=== PATIENT | male | born 1960 | race Caucasian/White ===

== ENCOUNTER 2020-02-03 08:09 | Inpatient (IN) | payer OTHER ==
[2020-02-03] MEDS ORDERED: Sodium Chloride 0.9% 10 ML Syringe FLUSH PRN (08:32)
[2020-02-03] MEDS ORDERED: Ondansetron 4 MG/2 ML SDV IVPUSH PRN (08:37)
[2020-02-03] MEDS ORDERED: Sodium Chloride 0.9% 1,000 ML IV SCH (08:45)
[2020-02-03] MEDS ORDERED: D5 1/2 NS w/ 20 mEq/L KCl 1,000 ML ONE (09:42)
[2020-02-03] MEDS ORDERED: D5 1/2 NS w/ 10 mEq/L KCl 1,000 ML IV SCH (09:45)
[2020-02-03] MEDS: Magnesium Sulfate/D5W 1 GM/100 ML BAG IV SCH ×4 (10:01→16:01)
[2020-02-03] MEDS: D5 1/2 NS w/ 20 mEq/L KCl 1,000 ML IV SCH ×2 (10:01→16:31)
[2020-02-03] MEDS: Magnesium Sulfate/D5W 2 GM/200 ML BAG ONE ×2 (10:03→14:45)
[2020-02-03] MEDS ORDERED: Magnesium Sulfate/D5W 1 GM/100 ML Premix Bag IV SCH ×3 (10:10→18:45)
[2020-02-03] MEDS ORDERED: Magnesium Sulfate/D5W 1 GM/100 ML Premix Bag IV ONE (14:45)
[2020-02-03] MEDS ORDERED: Potassium Chloride 20 MEQ Tab.ER PO ONE (18:35)
[2020-02-03] MEDS ORDERED: MAGNESIUM SULFATE IV ONE (19:00)
[2020-02-03] MEDS ORDERED: WATER IV ONE (19:00)
[2020-02-04] MEDS: D5 1/2 NS w/ 20 mEq/L KCl 1,000 ML IV SCH ×4 (01:56→14:48)
[2020-02-04] MEDS: Aspirin 81 MG Tab.EC PO SCH (08:04)
[2020-02-04] MEDS ORDERED: MAGNESIUM SULFATE ONE (16:56)
[2020-02-04] MEDS ORDERED: DEXTROSE ONE (16:56)
[2020-02-04] MEDS ORDERED: Magnesium Sulfate/D5W 1 GM/100 ML Premix Bag IV SCH (17:00)
[2020-02-04] MEDS: Magnesium Sulfate/D5W 1 GM/100 ML BAG IV SCH ×4 (17:22→21:46)
--- NOTE | 2020-02-04 17:33 | CR ---
DATE OF SERVICE: 02/04/20 CLINICAL DATA: Neurological deficit/impairment CERVICAL SPINE: No priors. There is diffuse osteopenia. There is mild reversal of the normal cervical lordosis on the lateral view. This is most likely positional or due to muscle spasm. The cervical bodies are of average height. No acute fracture or dislocation. There is mild degenerative disc disease at a couple levels. The disc spaces appear relatively intact. No other significant findings. If the patient's symptoms persist, a MRI scan should be considered. [id number] MTDD
[2020-02-04] MEDS ORDERED: Potassium Chloride 20 MEQ Tab.ER PO ONE (20:45)
[2020-02-05] MEDS ORDERED: Potassium Chloride 20 MEQ Tab.ER PO ONE ×2 (00:31→08:14)
[2020-02-05] MEDS: Aspirin 81 MG Tab.EC PO SCH (07:49)
[2020-02-05] MEDS ORDERED: Lisinopril 20 MG Tab PO SCH (08:15)
[2020-02-05] MEDS: Magnesium Sulfate/D5W 2 GM/200 ML BAG ONE ×2 (08:41→09:53)
[2020-02-05] MEDS ORDERED: Triamcinolone Acetonide 40 MG/ML 1 ML MDV INJECT ONE (15:43)
[2020-02-05] MEDS ORDERED: Sildenafil 20 MG Tab PO PRN (16:02)
[2020-02-05] MEDS ORDERED: MSM PO SCH (20:00)
[2020-02-05] MEDS ORDERED: metFORMIN 1,000 MG Tab PO SCH (20:00)
[2020-02-05] MEDS ORDERED: [UNRECOGNIZED DRUG - OTHER] PO SCH (20:00)
[2020-02-05] MEDS ORDERED: GLUC SU PO SCH (20:00)
[2020-02-05] MEDS ORDERED: atorvaSTATin 40 MG Tab PO SCH (20:00)
[2020-02-05] MEDS ORDERED: MAGNESIUM PO SCH (20:00)
[2020-02-05] MEDS ORDERED: amLODIPine 5 MG Tab PO SCH (20:00)
--- NOTE | 2020-02-05 20:37 | PCM.HP.2 ---
H&P History of Present Illness - General Date of Service: 02/03/20 Admit Problem/Dx: Admission Diagnosis/Problem Admission Diagnosis/Problem Hypomagnesemia Source of Information: Patient History Limitations: Reports: No Limitations - History of Present Illness Initial Comments - Free Text/Narative: Jerrod presents with significant symptoms of dehydration as well as recurrent nausea and vomiting. He started to become ill at least 2 months ago. He mainly focuses on his issues with nausea. He has had multiple emesis. He notes that this has been gradually worsening for at least 5+ weeks. Over the last 2 days, it has become severe enough that he has been unable to eat any food. He has had really limited oral intake. He has never had any significant issues with hypokalemia or hypomagnesemia per his knowledge. He is very weak upon arrival. He has no focal deficits. He feels dizzy with flexion of his neck lifting his head up a pillow. This is noted to elicit some mild nystagmus at the endpoints of his gaze bilaterally. He otherwise has conjugate movements of his eyes and definite denial of any visual symptoms. He does not appear to be particularly vertiginous. He has not been 1 to have migraines. He has had no hematemesis, melena, or hematochezia. He has had no diarrhea whatsoever. He has had no fevers. He denies any palpitations or history of ischemic or other cardiovascular issues throughout his life. His diabetes and hypertension is described as reasonably controlled. He continues to smoke, but has never really been want to drink much. He has had no issues in terms of lower extremity weakness or gait ataxia. Generalized Pain Score (Numeric/FACES): 2 - Related Data Allergies/Adverse Reactions: Allergies Allergy/AdvReac Type Severity Reaction Status Date / Time No Known Allergies Allergy Verified 02/03/20 09:22 Home Medications: Home Meds Aspirin [Ecotrin EC] 81 mg PO DAILY 02/03/20 [History] Gluc Panchal/Msm/Magnesium/Vit C [Glucosamine Complex-MSM] 1 cap PO BID 02/03/20 [ History] Krill Oil/[place]-3/Dha/Epa [Cvs [place]-3 Krill Oil 300 Sfgl] 1 cap PO DAILY [History] Multivitamin/Iron/Folic Acid [Centrum Adults Tablet] 1 tab PO DAILY 04/19/20 [ History] Omeprazole 20 mg PO DAILY 02/03/20 [History] Pioglitazone HCl [Actos] 45 mg PO DAILY 02/03/20 [History] Sildenafil [Revatio] 20 mg PO DAILY PRN 02/03/20 [History] amLODIPine [Norvasc] 5 mg PO BEDTIME 02/03/20 [History] atorvaSTATin [Lipitor] 40 mg PO BEDTIME 02/03/20 [History] lisinopriL [Lisinopril] 40 mg PO BEDTIME 02/03/20 [History] metFORMIN [Glucophage] 1,000 mg PO BID 02/03/20 [History] Past Medical History Cardiovascular History: Reports: High Cholesterol Respiratory History: Reports: None, Other (See Below) Other Respiratory History: smoker Endocrine/Metabolic History: Reports: Diabetes, Type II - Infectious Disease History Infectious Disease History: Reports: Mumps Other Infectious Disease History: Not sure but thinks so for Measles, mumps chicken pox - Past Surgical History Cardiovascular Surgical History: Reports: None Endocrine Surgical History: Reports: None Musculoskeletal Surgical History: Reports: Hip Replacement Social & Family History - Family History Family Medical History: Noncontributory - Tobacco Use Smoking Status *Q: Current Every Day Smoker Years of Tobacco use: 40 Packs/Tins Daily: 1 - Caffeine Use Caffeine Use: Reports: Soda - Recreational Drug Use Recreational Drug Use: No H&P Review of Systems - Review of Systems: Review Of Systems: Comprehensive ROS is negative, except as noted in HPI. Exam - Exam Exam: See Below - Vital Signs Vital Signs: Last Vital Signs Temp 98.7 F 02/05/20 12:00 Pulse 94 02/05/20 12:00 Resp 16 02/05/20 12:00 BP 120/71 02/05/20 12:00 Pulse Ox 96 02/05/20 12:00 Weight: 282 lb - Exam General: Alert, Oriented HEENT: PERRLA, Conjunctiva Clear, EOMI, Pupils Equal Neck: Supple Lungs: Clear to Auscultation, Normal Respiratory Effort Cardiovascular: Regular Rhythm GI/Abdominal Exam: Normal Bowel Sounds, Soft, Non-Tender, No Distention Back Exam: Normal Inspection, Muscle Spasm. No: CVA Tenderness (R), CVA Tenderness (L) Extremities: Normal Inspection, Non-Tender, No Pedal Edema, Normal Capillary Refill Skin: Warm, Dry, Intact Neurological: Cranial Nerves Intact, Strength Equal Bilateral, Normal Speech, Sensation Intact. No: Focal Deficit Neuro Extensive - Mental Status: Alert, Oriented x3, Normal Mood/Affect, Normal Cognition, Memory Intact Neuro Extensive - Motor, Sensory, Reflexes: CN II-XII Intact. No: Motor/ Sensory Deficits Psychiatric: Alert, Normal Affect, Normal Mood - Patient Data Lab Results Last 24 hrs: Laboratory Results - last 24 hr 02/05/20 Range/Units 07:20 Sodium 138 (136-145) mmol/L Potassium 3.9 (3.5-5.1) mmol/L Chloride 103 (98-107) mmol/L Carbon Dioxide 29.2 (21.0-32.0) mmol/L Anion Gap 9.7 (5.0-15.0) mmol/L BUN 6 L D (8-26) mg/dL Creatinine 0.80 (0.70-1.30) mg/dL Est Cr Clr Drug Dosing 122.41 mL/min Estimated GFR (MDRD) > 60 (>60) MLS/MIN BUN/Creatinine Ratio 7.5 (6-25) Glucose 122 H (74-100) mg/dL Calcium 8.0 L (8.5-10.1) mg/dL Magnesium 1.7 L (1.8-2.4) mg/dL Result Diagrams: 02/04/20 07:15 02/05/20 07:20 Sepsis Event Note - Evaluation Sepsis Screening Result: No Definite Risk - Focused Exam Vital Signs: Vital Signs Temp Pulse Resp BP BP Pulse Ox 02/05/20 12:00 98.7 F 94 16 120/71 96 02/05/20 08:40 138/98 H Date Exam was Performed: 02/06/20 Time Exam was Performed: 00:41 Problem List Initiated/Reviewed/Updated: Yes Orders Last 24hrs: Active Orders 24 hr Category Date Time Status Ready for Discharge [RC] PER UNIT ROUTINE Care 02/05/20 15:48 Active Assessment/Plan Comment:: Severe hypomagnesemia and risk for cardiac electrical storm +/- torsades- explained risk vs benefit of transfer vs continued management at this facility; and Jerrod expresses a very strong preference to stay in our facility. Plan continued electrolyte and fluid replenishment. Dizziness- difficult to r/o element of orthostasis; not clearly vertiginous; but nystagmus begs the question of BPPV. Follow to resolution and evaluate as regains more physical stamina
--- NOTE | 2020-02-05 21:40 | PCM.PN ---
- General Info Date of Service: 02/04/20 Subjective Update: Jerrod feels markedly better. Urine output improving. Certainly his severity of hypomagnesemia is improving. Total body deficit is striking and difficult to determine. Plan to continue to run as fluid repletion continue. He actually is not up to ambulating much. Having some dizziness today, but less so. He relates his story of relatively occult neck fracture. Was well until about a month ago, and felt a slight snapping sensation open rolling out of bed. Has followed with PT and interested in re-Xray. Tolerating well orally. No new issues. - Patient Data Vitals - Most Recent: Last Vital Signs Temp 98.7 F 02/05/20 12:00 Pulse 94 02/05/20 12:00 Resp 16 02/05/20 12:00 BP 120/71 02/05/20 12:00 Pulse Ox 96 02/05/20 12:00 Weight - Most Recent: 282 lb I&O - Last 24 Hours: Intake & Output 02/05/20 02/05/20 02/05/20 06:59 14:59 22:59 Intake Total 1250 Balance 1250 Lab Results Last 24 Hours: Laboratory Results - last 24 hr 02/05/20 Range/Units 07:20 Sodium 138 (136-145) mmol/L Potassium 3.9 (3.5-5.1) mmol/L Chloride 103 (98-107) mmol/L Carbon Dioxide 29.2 (21.0-32.0) mmol/L Anion Gap 9.7 (5.0-15.0) mmol/L BUN 6 L D (8-26) mg/dL Creatinine 0.80 (0.70-1.30) mg/dL Est Cr Clr Drug Dosing 122.41 mL/min Estimated GFR (MDRD) > 60 (>60) MLS/MIN BUN/Creatinine Ratio 7.5 (6-25) Glucose 122 H (74-100) mg/dL Calcium 8.0 L (8.5-10.1) mg/dL Magnesium 1.7 L (1.8-2.4) mg/dL Med Orders - Current: Current Medications Discontinued Medications Amlodipine Besylate (Norvasc) 5 mg PO BEDTIME [facility] Aspirin (Halfprin) 81 mg PO DAILY [facility] Last Admin: 02/05/20 07:49 Dose: 81 mg Atorvastatin Calcium (Lipitor) 40 mg PO BEDTIME [facility] Sodium Chloride (Normal Saline) 1,000 mls @ 999 mls/hr IV ASDIRECTED [facility] Last Admin: 02/03/20 08:39 Dose: 999 mls/hr Potassium Chloride/Dextrose/Sod Cl (D5 1/2 Ns W/ 20 Meq/L Kcl) Confirm Administered Dose 1,000 mls @ as directed .ROUTE .[facility] Stop: 02/03/20 09:43 Last Admin: 02/03/20 10:02 Dose: Not Given Potassium Chloride/Dextrose/Sod Cl (D5 1/2 Ns W/ 10 Meq/L Kcl) 1,000 mls @ 200 mls/hr IV ASDIRECTED [facility] Magnesium Sulfate/Dextrose (Magnesium Sulfate In D5w 100 Premix) Confirm Administered Dose 2 gm in 200 mls @ as directed .ROUTE .[facility] Stop: 02/03/20 09:45 Last Admin: 02/03/20 14:45 Dose: Not Given Potassium Chloride/Dextrose/Sod Cl (D5 1/2 Ns W/ 20 Meq/L Kcl) 1,000 mls @ 200 mls/hr IV ASDIRECTED [facility] Last Admin: 02/04/20 14:48 Dose: 200 mls/hr Magnesium Sulfate/Dextrose (Magnesium Sulfate In D5w 100 Premix) 1 gm in 100 mls @ 100 mls/hr IV Q1H [facility] Stop: 02/03/20 12:29 Last Admin: 02/03/20 14:43 Dose: 200 mls/hr Magnesium Sulfate/Dextrose (Magnesium Sulfate In D5w 100 Premix) 1 gm in 100 mls @ 100 mls/hr IV Q1H [facility] Stop: 02/03/20 16:44 Last Admin: 02/03/20 16:01 Dose: 200 mls/hr Magnesium Sulfate 4 gm/ Premix 50 mls @ 12.5 mls/hr IV ONETIME ONE Stop: 02/03/20 22:59 Last Admin: 02/03/20 19:13 Dose: 12.5 mls/hr Magnesium Sulfate/Dextrose (Magnesium Sulfate In D5w 100 Premix) Confirm Administered Dose 4 gm in 400 mls @ as directed .ROUTE .[facility] Stop: 02/04/20 16:57 Last Admin: 02/04/20 17:21 Dose: 100 mls/hr Magnesium Sulfate/Dextrose (Magnesium Sulfate In D5w 100 Premix) 1 gm in 100 mls @ 100 mls/hr IV Q1H [facility] Stop: 02/04/20 21:29 Last Admin: 02/04/20 21:46 Dose: 100 mls/hr Magnesium Sulfate/Dextrose (Magnesium Sulfate In D5w 100 Premix) Confirm Administered Dose 2 gm in 200 mls @ as directed .ROUTE .[facility] ONE Stop: 02/05/20 08:38 Last Admin: 02/05/20 09:53 Dose: Not Given Magnesium Sulfate 4 gm/ Sodium (Chloride) 258 mls @ 65 mls/hr IV ASDIRECTED [facility] Stop: 02/05/20 23:59 Last Admin: 02/05/20 09:35 Dose: 65 mls/hr Lisinopril (Prinivil) 20 mg PO DAILY [facility] Last Admin: 02/05/20 08:40 Dose: 20 mg Lisinopril (Prinivil) 40 mg PO BEDTIME [facility] Magnesium Sulfate/Dextrose (Magnesium Sulfate In D5w 100 Premix) 1 gm IV Q1H [facility] Stop: 02/03/20 11:11 Magnesium Sulfate/Dextrose (Magnesium Sulfate In D5w 100 Premix) 1 gm IV ASDIRECTED [facility] Magnesium Sulfate/Dextrose (Magnesium Sulfate In D5w 100 Premix) 1 gm IV ONETIME ONE Stop: 02/03/20 14:46 Magnesium Sulfate/Dextrose (Magnesium Sulfate In D5w 100 Premix) 1 gm IV ASDIRECTED [facility] Stop: 02/06/20 18:46 Metformin HCl (Glucophage) 1,000 mg PO BID [facility] Non-Formulary Medication (Gluc Panchal/Msm/Magnesium/Vit C [Glucosamine Complex-Msm] ) 1 cap PO BID [facility] Non-Formulary Medication (Krill Oil/[place]-3/Dha/Epa [Cvs [place]-3 Krill Oil 300 Sfgl]) 1 cap PO DAILY [facility] Non-Formulary Medication (Multivitamin/Iron/Folic Acid [Centrum Adults Tablet]) 1 tab PO DAILY [facility] Ondansetron HCl (Zofran) 4 mg IVPUSH Q4H PRN PRN Reason: Nausea/Vomiting Last Admin: 02/03/20 08:39 Dose: 4 mg Pioglitazone HCl (Actos) 45 mg PO DAILY [facility] Potassium Chloride (Klor-Con M20) 40 meq PO ONETIME ONE Stop: 02/03/20 18:36 Last Admin: 02/03/20 19:12 Dose: 40 meq Potassium Chloride (Klor-Con M20) 40 meq PO ONETIME ONE Stop: 02/04/20 20:46 Last Admin: 02/04/20 21:08 Dose: 40 meq Potassium Chloride (Klor-Con M20) 40 meq PO ONETIME ONE Stop: 02/05/20 00:32 Last Admin: 02/05/20 00:54 Dose: 40 meq Potassium Chloride (Klor-Con M20) 40 meq PO ONETIME ONE Stop: 02/05/20 08:15 Last Admin: 02/05/20 08:40 Dose: 40 meq Sildenafil Citrate (Revatio) 20 mg PO DAILY PRN PRN Reason: Other Sodium Chloride (Saline Flush) 10 ml FLUSH ASDIRECTED PRN PRN Reason: IV Use Triamcinolone Acetonide (Kenalog-40) 40 mg INJECT ONETIME ONE Stop: 02/05/20 15:44 Sepsis Event Note - Evaluation Sepsis Screening Result: No Definite Risk - Focused Exam Vital Signs: Vital Signs Temp Pulse Resp BP Pulse Ox 02/05/20 12:00 98.7 F 94 16 120/71 96 Date Exam was Performed: 02/05/20 Time Exam was Performed: 21:16 - Problem List Review Problem List Initiated/Reviewed/Updated: Yes - My Orders Last 24 Hours: My Active Orders 02/05/20 15:48 Ready for Discharge [RC] PER UNIT ROUTINE - Assessment Assessment:: Jerrod is improving. Plan to cautiously start PO KCL, given the longstanding degree of nausea. He is wondering about the etiology of this. Certainly apparent that not satisfied in any way shape or form with omeprazole. He certainly has dyspepsia. Seems to warrant H pylori assessment. Surprisingly, was able to have a solid stool. This was sent, while suspected underlying etiology seems possibly multifactorial. Possibly exacerbated by gastroparesis and/or other aspect aside from definite uncontrolled GERD. Other etiologies of refractory nausea considered including cholecystectomy, are not felt to be contributory at this time. - Plan Plan:: Severe hypomagnesemia and risk for cardiac electrical storm +/- torsades- explained risk vs benefit of transfer vs continued management at this facility; and Jerrod expresses a very strong preference to stay in our facility. Plan continued electrolyte and fluid replenishment. Dizziness- difficult to r/o element of orthostasis; not clearly vertiginous; but nystagmus begs the question of BPPV. Follow to resolution and evaluate as regains more physical stamina
--- NOTE | 2020-02-05 22:57 | PCM.DCSUM1 ---
Discharge Summary - Hospital Course Free Text/Narrative:: Jerrod had ongoing, and steadily worsening, refractory nausea and vomiting. No clear compelling etiology. Multiple causes and etiologies considered. Resolved rather promptly with relatively minimal antiemetics. Potassium seemed to improve once magnesium loading accomplished. PT eval, which was warranted for dizziness, neck pain, and left knee pain, resulted in possible improvement of dizziness. Despite definite decrease in nystagmus per my ongoing evaluation , this doesn't seem to correlate with any sx's of dizziness. He denies issues in terms of gait, and PT agrees, he seems safe for continued outpatient management. He certainly does not have BPPV, and neurologic consultation is more than warranted. I certainly will arrange for outpatient imaging in conjunction with this. Also, consult with PT with subspecialty interest in neuro, and ongoing PT follow up here is ensured by his oncoming therapist. He was provided with continued oral magnesium replacement at 400 mg p.o. twice daily x14 days and potassium chloride of 40 mEq p.o. twice daily x14 days. Discharge planning was discussed and at this point, Jerrod does not really desire clinic follow-up, and due to issues with coronavirus, we will not plan on having him come in for repeat electrolyte checking. Hema reassures us that she has some oral Zofran at home and understands importance of instituting this more readily, and Jerrod definitely is more amenable to prompt follow-up in the future with any symptoms. Certainly could be worthwhile repeating a magnesium level with his next lab draw, given the severity of his deficiency. If he continues to have any electrolyte derangement down the road, nephrology consultation could be considered as well. He will otherwise resume his home medications with a scopolamine patch applied every 72 hours as needed and meclizine 25 mg p.o. every 6 hours as needed, which will hopefully help with his dizziness. He was encouraged to try [id number] Biotene products as well as potentially a Lidoderm patch. I did explain that his dry mouth sensation is not typical for him, and probably seems consistent with his severe dehydration upon presentation. In any event, could consider artificial saliva and/or pilocarpine eyedrops with any ongoing issues. His will call the ambulance if he has any issues with falls as she is certainly not capable of lifting him up, and he is otherwise noted to be discharged in good condition. Diagnosis: Stroke: No - Discharge Data Discharge Date: 02/05/20 Discharge Disposition: Home, Self-Care 01 Condition: Good - Referral to Home Health Primary Care Physician: PCP None - Patient Summary/Data Consults: Consultations 02/04/20 14:11 PT Evaluation and Treatment [CONS] Routine Please Evaluate and Treat. PT Reason for Consult: Ambulation This query below is only for informational purposes and is not editable. Admission Diagnosis/Problem: Hypomagnesemia - Patient Instructions Diet: Regular Diet as Tolerated Activity: As Tolerated Driving: Do Not Drive Showering/Bathing: May Shower Notify Provider of: Fever, Increased Pain, Swelling and Redness, Nausea and/or Vomiting - Discharge Plan Home Medications: Home Meds Aspirin [Ecotrin EC] 81 mg PO DAILY 02/03/20 [History] Gluc Panchal/Msm/Magnesium/Vit C [Glucosamine Complex-MSM] 1 cap PO BID 02/03/20 [ History] Krill Oil/[place]-3/Dha/Epa [Cvs [place]-3 Krill Oil 300 Sfgl] 1 cap PO DAILY [History] Multivitamin/Iron/Folic Acid [Centrum Adults Tablet] 1 tab PO DAILY 02/03/20 [ History] Omeprazole 20 mg PO DAILY 02/03/20 [History] Pioglitazone HCl [Actos] 45 mg PO DAILY 02/03/20 [History] Sildenafil [Revatio] 20 mg PO DAILY PRN 02/03/20 [History] amLODIPine [Norvasc] 5 mg PO BEDTIME 02/03/20 [History] atorvaSTATin [Lipitor] 40 mg PO BEDTIME 02/03/20 [History] lisinopriL [Lisinopril] 40 mg PO BEDTIME 02/03/20 [History] metFORMIN [Glucophage] 1,000 mg PO BID 02/03/20 [History] Patient Handouts: Vertigo, [id number], Hypomagnesemia, Hypokalemia - Discharge Summary/Plan Comment DC Time >30 min.: No - General Info Date of Service: 02/05/20 Admission Dx/Problem (Free Text: Admission Diagnosis/Problem Admission Diagnosis/Problem Hypomagnesemia - Patient Data Vitals - Most Recent: Last Vital Signs Temp 98.7 F 02/05/20 12:00 Pulse 94 02/05/20 12:00 Resp 16 02/05/20 12:00 BP 120/71 02/05/20 12:00 Pulse Ox 96 02/05/20 12:00 Weight - Most Recent: 282 lb I&O - Last 24 hours: Intake & Output 02/05/20 02/05/20 02/05/20 06:59 14:59 22:59 Intake Total 1250 Balance 1250 Lab Results - Last 24 hrs: Laboratory Results - last 24 hr 02/05/20 Range/Units 07:20 Sodium 138 (136-145) mmol/L Potassium 3.9 (3.5-5.1) mmol/L Chloride 103 (98-107) mmol/L Carbon Dioxide 29.2 (21.0-32.0) mmol/L Anion Gap 9.7 (5.0-15.0) mmol/L BUN 6 L D (8-26) mg/dL Creatinine 0.80 (0.70-1.30) mg/dL Est Cr Clr Drug Dosing 122.41 mL/min Estimated GFR (MDRD) > 60 (>60) MLS/MIN BUN/Creatinine Ratio 7.5 (6-25) Glucose 122 H (74-100) mg/dL Calcium 8.0 L (8.5-10.1) mg/dL Magnesium 1.7 L (1.8-2.4) mg/dL Med Orders - Current: Current Medications Discontinued Medications Amlodipine Besylate (Norvasc) 5 mg PO BEDTIME [facility] Aspirin (Halfprin) 81 mg PO DAILY [facility] Last Admin: 02/05/20 07:49 Dose: 81 mg Atorvastatin Calcium (Lipitor) 40 mg PO BEDTIME [facility] Sodium Chloride (Normal Saline) 1,000 mls @ 999 mls/hr IV ASDIRECTED [facility] Last Admin: 02/03/20 08:39 Dose: 999 mls/hr Potassium Chloride/Dextrose/Sod Cl (D5 1/2 Ns W/ 20 Meq/L Kcl) Confirm Administered Dose 1,000 mls @ as directed .ROUTE .STK-MED ONE Stop: 02/03/20 09:43 Last Admin: 02/03/20 10:02 Dose: Not Given Potassium Chloride/Dextrose/Sod Cl (D5 1/2 Ns W/ 10 Meq/L Kcl) 1,000 mls @ 200 mls/hr IV ASDIRECTED [facility] Magnesium Sulfate/Dextrose (Magnesium Sulfate In D5w 100 Premix) Confirm Administered Dose 2 gm in 200 mls @ as directed .ROUTE .STK-MED ONE Stop: 02/03/20 09:45 Last Admin: 02/03/20 14:45 Dose: Not Given Potassium Chloride/Dextrose/Sod Cl (D5 1/2 Ns W/ 20 Meq/L Kcl) 1,000 mls @ 200 mls/hr IV ASDIRECTED [facility] Last Admin: 02/04/20 14:48 Dose: 200 mls/hr Magnesium Sulfate/Dextrose (Magnesium Sulfate In D5w 100 Premix) 1 gm in 100 mls @ 100 mls/hr IV Q1H [facility] Stop: 02/03/20 12:29 Last Admin: 02/03/20 14:43 Dose: 200 mls/hr Magnesium Sulfate/Dextrose (Magnesium Sulfate In D5w 100 Premix) 1 gm in 100 mls @ 100 mls/hr IV Q1H [facility] Stop: 02/03/20 16:44 Last Admin: 02/03/20 16:01 Dose: 200 mls/hr Magnesium Sulfate 4 gm/ Premix 50 mls @ 12.5 mls/hr IV ONETIME ONE Stop: 02/03/20 22:59 Last Admin: 02/03/20 19:13 Dose: 12.5 mls/hr Magnesium Sulfate/Dextrose (Magnesium Sulfate In D5w 100 Premix) Confirm Administered Dose 4 gm in 400 mls @ as directed .ROUTE .[facility] ONE Stop: 02/04/20 16:57 Last Admin: 02/04/20 17:21 Dose: 100 mls/hr Magnesium Sulfate/Dextrose (Magnesium Sulfate In D5w 100 Premix) 1 gm in 100 mls @ 100 mls/hr IV Q1H [facility] Stop: 02/04/20 21:29 Last Admin: 02/04/20 21:46 Dose: 100 mls/hr Magnesium Sulfate/Dextrose (Magnesium Sulfate In D5w 100 Premix) Confirm Administered Dose 2 gm in 200 mls @ as directed .ROUTE .[facility] ONE Stop: 02/05/20 08:38 Last Admin: 02/05/20 09:53 Dose: Not Given Magnesium Sulfate 4 gm/ Sodium (Chloride) 258 mls @ 65 mls/hr IV ASDIRECTED [facility] Stop: 02/05/20 23:59 Last Admin: 02/05/20 09:35 Dose: 65 mls/hr Lisinopril (Prinivil) 20 mg PO DAILY [facility] Last Admin: 02/05/20 08:40 Dose: 20 mg Lisinopril (Prinivil) 40 mg PO BEDTIME [facility] Magnesium Sulfate/Dextrose (Magnesium Sulfate In D5w 100 Premix) 1 gm IV Q1H [facility] Stop: 02/03/20 11:11 Magnesium Sulfate/Dextrose (Magnesium Sulfate In D5w 100 Premix) 1 gm IV ASDIRECTED [facility] Magnesium Sulfate/Dextrose (Magnesium Sulfate In D5w 100 Premix) 1 gm IV ONETIME ONE Stop: 02/03/20 14:46 Magnesium Sulfate/Dextrose (Magnesium Sulfate In D5w 100 Premix) 1 gm IV ASDIRECTED [facility] Stop: 02/06/20 18:46 Metformin HCl (Glucophage) 1,000 mg PO BID [facility] Non-Formulary Medication (Gluc Panchal/Msm/Magnesium/Vit C [Glucosamine Complex-Msm] ) 1 cap PO BID [facility] Non-Formulary Medication (Krill Oil/[place]-3/Dha/Epa [Cvs [place]-3 Krill Oil 300 Sfgl]) 1 cap PO DAILY [facility] Non-Formulary Medication (Multivitamin/Iron/Folic Acid [Centrum Adults Tablet]) 1 tab PO DAILY [facility] Ondansetron HCl (Zofran) 4 mg IVPUSH Q4H PRN PRN Reason: Nausea/Vomiting Last Admin: 02/03/20 08:39 Dose: 4 mg Pioglitazone HCl (Actos) 45 mg PO DAILY [facility] Potassium Chloride (Klor-Con M20) 40 meq PO ONETIME ONE Stop: 02/03/20 18:36 Last Admin: 02/03/20 19:12 Dose: 40 meq Potassium Chloride (Klor-Con M20) 40 meq PO ONETIME ONE Stop: 02/04/20 20:46 Last Admin: 02/04/20 21:08 Dose: 40 meq Potassium Chloride (Klor-Con M20) 40 meq PO ONETIME ONE Stop: 02/05/20 00:32 Last Admin: 02/05/20 00:54 Dose: 40 meq Potassium Chloride (Klor-Con M20) 40 meq PO ONETIME ONE Stop: 02/05/20 08:15 Last Admin: 02/05/20 08:40 Dose: 40 meq Sildenafil Citrate (Revatio) 20 mg PO DAILY PRN PRN Reason: Other Sodium Chloride (Saline Flush) 10 ml FLUSH ASDIRECTED PRN PRN Reason: IV Use Triamcinolone Acetonide (Kenalog-40) 40 mg INJECT ONETIME ONE Stop: 02/05/20 15:44 - Exam General: Reports: Alert, Oriented HEENT: Reports: Pupils Equal, EOMI, Mucous Membr. Moist/[place] Neck: Reports: Supple Lungs: Reports: Clear to Auscultation, Normal Respiratory Effort Cardiovascular: Reports: Regular Rate, Regular Rhythm GI/Abdominal Exam: Normal Bowel Sounds, Soft, Non-Tender Back Exam: Reports: Normal Inspection, Full Range of Motion Extremities: Normal Inspection, Normal Range of Motion, Non-Tender, No Pedal Edema, Normal Capillary Refill, Other (Left knee ) Skin: Reports: Warm, Dry, Intact Neurological: Reports: No New Focal Deficit Psy/Mental Status: Reports: Alert, Normal Affect, Normal Mood
--- NOTE | 2020-02-06 00:53 | EDM.PDOC ---
ED HPI GENERAL MEDICAL PROBLEM - General Chief Complaint: Gastrointestinal Problem Stated Complaint: nausea & vomiting Time Seen by Provider: 02/03/20 08:30 Source of Information: Reports: Patient History Limitations: Reports: No Limitations - History of Present Illness INITIAL COMMENTS - FREE TEXT/NARRATIVE: Please see admission H&P for details of acute presentation. Jerrod, in brief, essentially presents with, at least 5 weeks of gradually worsening nausea and vomiting. He is very dehydrated. He has had no significant oral intake over the last couple of days. He was brought to the emergency room by his son. Other Treatments [employer]: peptobismal Generalized Pain Score (Numeric/FACES): 2 - Related Data Allergies Allergy/AdvReac Type Severity Reaction Status Date / Time No Known Allergies Allergy Verified 02/03/20 09:22 Home Meds: Home Meds Aspirin [Ecotrin EC] 81 mg PO DAILY 02/03/20 [History] Gluc Panchal/Msm/Magnesium/Vit C [Glucosamine Complex-MSM] 1 cap PO BID 02/03/20 [ History] Krill Oil/S [place]-3/Dha/Epa [Cvs S [place]-3 Krill Oil 300 Sfgl] 1 cap PO DAILY [History] Multivitamin/Iron/Folic Acid [Centrum Adults Tablet] 1 tab PO DAILY 02/03/20 [ History] Omeprazole 20 mg PO DAILY 02/03/20 [History] Pioglitazone HCl [Actos] 45 mg PO DAILY 02/03/20 [History] Sildenafil [Revatio] 20 mg PO DAILY PRN 02/03/20 [History] amLODIPine [Norvasc] 5 mg PO BEDTIME 02/03/20 [History] atorvaSTATin [Lipitor] 40 mg PO BEDTIME 02/03/20 [History] lisinopriL [Lisinopril] 40 mg PO BEDTIME 02/03/20 [History] metFORMIN [Glucophage] 1,000 mg PO BID 02/03/20 [History] Past Medical History Cardiovascular History: Reports: High Cholesterol Respiratory History: Reports: None, Other (See Below) Other Respiratory History: smoker Endocrine/Metabolic History: Reports: Diabetes, Type II - Infectious Disease History Infectious Disease History: Reports: Mumps Other Infectious Disease History: Not sure but thinks so for Measles, mumps chicken pox - Past Surgical History Cardiovascular Surgical History: Reports: None Endocrine Surgical History: Reports: None Musculoskeletal Surgical History: Reports: Hip Replacement Social & Family History - Family History Family Medical History: Noncontributory - Tobacco Use Smoking Status *Q: Current Every Day Smoker Years of Tobacco use: 40 Packs/Tins Daily: 1 - Caffeine Use Caffeine Use: Reports: Soda - Recreational Drug Use Recreational Drug Use: No ED ROS GENERAL - Review of Systems Review Of Systems: Comprehensive ROS is negative, except as noted in HPI. ED EXAM, GENERAL - Physical Exam Exam: See Below Exam Limited By: No Limitations General Appearance: Alert, WD/WN, No Apparent Distress Eye Exam: Bilateral Eye: EOMI, PERRL Ears: Normal External Exam Nose: Normal Inspection Throat/Mouth: Normal Inspection, Normal Voice, No Airway Compromise Head: Atraumatic, Normocephalic Neck: Normal Inspection, Supple, Non-Tender, Full Range of Motion Respiratory/Chest: No Respiratory Distress, Lungs Clear, Normal Breath Sounds Cardiovascular: Regular Rate, Rhythm, No Murmur GI/Abdominal: Normal Bowel Sounds, Soft, Non-Tender, No Distention Back Exam: Normal Inspection, Muscle Spasm. No: CVA Tenderness (R), CVA Tenderness (L) Extremities: Normal Inspection, Non-Tender, No Pedal Edema, Normal Capillary Refill Neurological: Alert, Oriented, CN II-XII Intact, Normal Cognition, No Motor/ Sensory Deficits Psychiatric: Normal Affect, Normal Mood Skin Exam: Warm, Dry Lymphatic: No Adenopathy Course - Vital Signs Last Recorded V/S: Last Vital Signs Temp 98.7 F 02/05/20 12:00 Pulse 94 02/05/20 12:00 Resp 16 02/05/20 12:00 BP 120/71 02/05/20 12:00 Pulse Ox 96 02/05/20 12:00 - Orders/Labs/Meds Labs: Laboratory Tests 02/03/20 02/03/20 02/03/20 Range/Units 08:45 08:45 08:45 WBC 12.5 H D (4.0-11.0) K/uL RBC 5.11 (4.50-6.50) M/uL Hgb 15.7 (13.0-18.0) g/dL Hct 44.1 (40.0-54.0) % MCV 86 (76-96) fL MCH 30.7 (27.0-32.0) pg MCHC 35.6 H (31.0-35.0) g/dL RDW 13.5 (11.0-16.0) % Plt Count 320 D (150-400) K/uL MPV 9.5 (6.0-10.0) fL Neut % (Auto) 79.7 H (45.0-70.0) % Lymph % (Auto) 13.8 L (20.0-40.0) % [place] % (Auto) 6.3 (3.0-10.0) % Eos % (Auto) 0.0 L (1.0-5.0) % Baso % (Auto) 0.2 (0.0-0.5) % Neut # (Auto) 9.97 H (2.00-7.50) K/uL Lymph # (Auto) 1.73 (1.50-4.00) K/uL [place] # (Auto) 0.79 (0.20-0.80) K/uL Eos # (Auto) 0.00 L (0.04-0.40) K/uL Baso # (Auto) 0.02 (0.02-0.10) K/uL Sodium 143 (136-145) mmol/L Potassium 2.6 L* D (3.5-5.1) mmol/L Chloride 97 L (98-107) mmol/L Carbon Dioxide 28.3 (21.0-32.0) mmol/L Anion Gap 20.3 H (5.0-15.0) mmol/L BUN 19 (8-26) mg/dL Creatinine 1.20 D (0.70-1.30) mg/dL Est Cr Clr Drug Dosing TNP Estimated GFR (MDRD) > 60 (>60) MLS/MIN BUN/Creatinine Ratio 15.8 (6-25) Glucose 209 H D (74-100) mg/dL Calcium 7.4 L D (8.5-10.1) mg/dL Magnesium (1.8-2.4) mg/dL Total Bilirubin 0.7 D (0.0-1.0) mg/dL AST 24 (15-37) U/L ALT 27 (12-78) U/L Alkaline Phosphatase 83 (46-116) U/L Troponin I < 0.017 (0.000-0.060) ng/mL C-Reactive Protein (0.0-3.0) mg/L Total Protein 8.0 (6.4-8.2) g/dL Albumin 4.3 (3.4-5.0) g/dL Globulin 3.7 (2.2-4.2) g/dL Albumin/Globulin Ratio 1.2 (0.8-2.0) Amylase 55 (25-115) U/L 02/03/20 02/03/20 Range/Units 08:45 08:45 WBC (4.0-11.0) K/uL RBC (4.50-6.50) M/uL Hgb (13.0-18.0) g/dL Hct (40.0-54.0) % MCV (76-96) fL MCH (27.0-32.0) pg MCHC (31.0-35.0) g/dL RDW (11.0-16.0) % Plt Count (150-400) K/uL MPV (6.0-10.0) fL Neut % (Auto) (45.0-70.0) % Lymph % (Auto) (20.0-40.0) % [place] % (Auto) (3.0-10.0) % Eos % (Auto) (1.0-5.0) % Baso % (Auto) (0.0-0.5) % Neut # (Auto) (2.00-7.50) K/uL Lymph # (Auto) (1.50-4.00) K/uL [place] # (Auto) (0.20-0.80) K/uL Eos # (Auto) (0.04-0.40) K/uL Baso # (Auto) (0.02-0.10) K/uL Sodium (136-145) mmol/L Potassium (3.5-5.1) mmol/L Chloride (98-107) mmol/L Carbon Dioxide (21.0-32.0) mmol/L Anion Gap (5.0-15.0) mmol/L BUN (8-26) mg/dL Creatinine (0.70-1.30) mg/dL Est Cr Clr Drug Dosing Estimated GFR (MDRD) (>60) MLS/MIN BUN/Creatinine Ratio (6-25) Glucose (74-100) mg/dL Calcium (8.5-10.1) mg/dL Magnesium 0.0 L* (1.8-2.4) mg/dL Total Bilirubin (0.0-1.0) mg/dL AST (15-37) U/L ALT (12-78) U/L Alkaline Phosphatase (46-116) U/L Troponin I (0.000-0.060) ng/mL C-Reactive Protein 1.3 (0.0-3.0) mg/L Total Protein (6.4-8.2) g/dL Albumin (3.4-5.0) g/dL Globulin (2.2-4.2) g/dL Albumin/Globulin Ratio (0.8-2.0) Amylase (25-115) U/L Meds: Medications Discontinued Medications Generic Name Dose Route Start Last Admin Trade Name Freq PRN Reason Stop Dose Admin Amlodipine Besylate 5 mg 02/05/20 20:00 Norvasc PO BEDTIME [facility] Aspirin 81 mg 02/04/20 08:00 02/05/20 07:49 Halfprin PO 81 mg DAILY [facility] Administration Atorvastatin Calcium 40 mg 02/05/20 20:00 Lipitor PO BEDTIME [facility] Sodium Chloride 1,000 mls @ 999 mls/hr 02/03/20 08:45 02/03/20 08:39 Normal Saline IV 999 mls/hr ASDIRECTED [facility] Administration Potassium Chloride/Dextrose/Sod Cl Confirm 02/03/20 09:42 02/03/20 10:02 D5 1/2 Ns W/ 20 Meq/L Kcl Administered 02/03/20 09:43 Not Given Dose 1,000 mls @ as directed .ROUTE .STK-MED ONE Potassium Chloride/Dextrose/Sod Cl 1,000 mls @ 200 mls/hr 02/03/20 09:45 D5 1/2 Ns W/ 10 Meq/L Kcl IV ASDIRECTED [facility] Magnesium Sulfate/Dextrose Confirm 02/03/20 09:44 02/03/20 14:45 Magnesium Sulfate In D5w 100 Premix Administered 02/03/20 09:45 Not Given Dose 2 gm in 200 mls @ as directed .ROUTE .STK-MED ONE Potassium Chloride/Dextrose/Sod Cl 1,000 mls @ 200 mls/hr 02/03/20 10:00 14:48 D5 1/2 Ns W/ 20 Meq/L Kcl IV 200 mls/hr ASDIRECTED [facility] Administration Magnesium Sulfate/Dextrose 1 gm in 100 mls @ 100 mls/hr 02/03/20 10:30 14:43 Magnesium Sulfate In D5w 100 Premix IV 02/03/20 12:29 200 mls/hr Q1H [facility] Administration Magnesium Sulfate/Dextrose 1 gm in 100 mls @ 100 mls/hr 02/03/20 14:45 16:01 Magnesium Sulfate In D5w 100 Premix IV 02/03/20 16:44 200 mls/hr Q1H [facility] Administration Magnesium Sulfate 4 gm/ Premix 50 mls @ 12.5 mls/hr 02/03/20 19:00 02/03/20 19:13 IV 02/03/20 22:59 12.5 mls/hr ONETIME ONE Administration Magnesium Sulfate/Dextrose Confirm 02/04/20 16:56 02/04/20 17:21 Magnesium Sulfate In D5w 100 Premix Administered 02/04/20 16:57 100 mls/hr Dose Administration 4 gm in 400 mls @ as directed .ROUTE .STK-MED ONE Magnesium Sulfate/Dextrose 1 gm in 100 mls @ 100 mls/hr 02/04/20 17:30 21:46 Magnesium Sulfate In D5w 100 Premix IV 02/04/20 21:29 100 mls/hr Q1H [facility] Administration Magnesium Sulfate/Dextrose Confirm 02/05/20 08:37 02/05/20 09:53 Magnesium Sulfate In D5w 100 Premix Administered 02/05/20 08:38 Not Given Dose 2 gm in 200 mls @ as directed .ROUTE .STK-MED ONE Magnesium Sulfate 4 gm/ Sodium 258 mls @ 65 mls/hr 02/05/20 09:00 02/05/20 09 :35 Chloride IV 02/05/20 23:59 65 mls/hr ASDIRECTED [facility] Administration Lisinopril 20 mg 02/05/20 08:15 02/05/20 08:40 Prinivil PO 20 mg DAILY [facility] Administration Lisinopril 40 mg 02/05/20 20:00 Prinivil PO BEDTIME [facility] Magnesium Sulfate/Dextrose 1 gm 02/03/20 10:10 Magnesium Sulfate In D5w 100 Premix IV 02/03/20 11:11 Q1H [facility] Magnesium Sulfate/Dextrose 1 gm 02/03/20 10:15 Magnesium Sulfate In D5w 100 Premix IV ASDIRECTED [facility] Magnesium Sulfate/Dextrose 1 gm 02/03/20 14:45 Magnesium Sulfate In D5w 100 Premix IV 02/03/20 14:46 ONETIME ONE Magnesium Sulfate/Dextrose 1 gm 02/03/20 18:45 Magnesium Sulfate In D5w 100 Premix IV 02/06/20 18:46 ASDIRECTED [facility] Metformin HCl 1,000 mg 02/05/20 20:00 Glucophage PO BID [facility] Non-Formulary Medication 1 cap 02/05/20 20:00 Gluc Panchal/Msm/Magnesium/Vit C [Glucosamine Complex-Msm] PO BID [facility] Non-Formulary Medication 1 cap 02/06/20 08:00 Krill Oil/S [place]-3/Dha/Epa [[facility]vs S [place]-3 Krill Oil 300 Sfgl] PO DAILY [facility] Non-Formulary Medication 1 tab 02/06/20 08:00 Multivitamin/Iron/Folic Acid [Centrum Adults Tablet] PO DAILY [facility] Ondansetron HCl 4 mg 02/03/20 08:37 02/03/20 08:39 Zofran IVPUSH 4 mg Q4H PRN Administration Nausea/Vomiting Pioglitazone HCl 45 mg 02/06/20 08:00 Actos PO DAILY [facility] Potassium Chloride 40 meq 02/03/20 18:35 02/03/20 19:12 Klor-Con M20 PO 02/03/20 18:36 40 meq ONETIME ONE Administration Potassium Chloride 40 meq 02/04/20 20:45 02/04/20 21:08 Klor-Con M20 PO 02/04/20 20:46 40 meq ONETIME ONE Administration Potassium Chloride 40 meq 02/05/20 00:31 02/05/20 00:54 Klor-Con M20 PO 02/05/20 00:32 40 meq ONETIME ONE Administration Potassium Chloride 40 meq 02/05/20 08:14 02/05/20 08:40 Klor-Con M20 PO 02/05/20 08:15 40 meq ONETIME ONE Administration Sildenafil Citrate 20 mg 02/05/20 16:02 Revatio PO DAILY PRN Other Sodium Chloride 10 ml 02/03/20 08:32 Saline Flush FLUSH ASDIRECTED PRN IV Use Triamcinolone Acetonide 40 mg 02/05/20 15:43 Kenalog-40 INJECT 02/05/20 15:44 ONETIME ONE Departure - Departure Time of Disposition: 10:30 Disposition: Admitted As Inpatient 68 Clinical Impression: Refractory nausea and vomiting - Discharge Information Sepsis Event Note - Evaluation Sepsis Screening Result: No Definite Risk
[2020-02-06] MEDS ORDERED: [UNRECOGNIZED DRUG - OTHER] PO SCH (08:00)
[2020-02-06] MEDS ORDERED: DHA PO SCH (08:00)
[2020-02-06] MEDS ORDERED: KRILL OIL PO SCH (08:00)
[2020-02-06] MEDS ORDERED: OMEGA PO SCH (08:00)
[2020-02-06] MEDS ORDERED: IRON PO SCH (08:00)
[2020-02-06] MEDS ORDERED: MULTIVITAMIN PO SCH (08:00)
[2020-02-06] MEDS ORDERED: EPA PO SCH (08:00)
[2020-02-06] MEDS ORDERED: [UNRECOGNIZED DRUG - OTHER] PO SCH (08:00)
[2020-02-06] MEDS ORDERED: FOLIC ACID PO SCH (08:00)
== END 2020-02-05 16:58 | disposition home or self-care (01) | DRG 641 ==
LOC: LB.ED 08:09 → LB.MS 10:31 → UNDOADMIN 11:18 → LB.MS 11:18
PROVIDERS: ADMIT Family Medicine; ATTEND Family Medicine
DX: E83.42 Hypomagnesemia (principal); E78.00 Pure hypercholesterolemia, unspecified; E11.9 Type 2 diabetes mellitus without complications; Z96.649 Presence of unspecified artificial hip joint; F17.200 Nicotine dependence, unspecified, uncomplicated; K21.9 Gastro-esophageal reflux disease without esophagitis; Z79.82 Long term (current) use of aspirin; Z79.84 Long term (current) use of oral hypoglycemic drugs; Z79.899 Other long term (current) drug therapy
CPT/HCPCS: 36415; 72040; 80048; 80053; 81001; 82150; 83735; 84132; 84484; 85025; 86140; 87338; 93005; 96361; 96365; 96375; 97161-GP; 97530-GP; 99285-25; A9270-GY; J2405; J3475; J3480; J7030; J7050

== ENCOUNTER 2020-03-27 09:46 | Emergency (ER) | payer OTHER ==
--- NOTE | 2020-03-27 10:57 | EDM.PDOC ---
ED HPI GENERAL MEDICAL PROBLEM - General Chief Complaint: General Stated Complaint: UNKNOWN Time Seen by Provider: 03/27/20 09:50 Source of Information: Reports: Patient History Limitations: Reports: No Limitations - History of Present Illness INITIAL COMMENTS - FREE TEXT/NARRATIVE: pt presents to the ER today from having his labs rechecked in the clinic and showing elevated K of 6.6. about 5 weeks ago pt had low k and mag levels, spent several nights in the hospital replenishing electrolytes and was d/c to home with supplemental K+ and mag prescriptions. pt states over the past two weeks ago he has been experiencing lower levels of energy, periodic lightheadedness based on posture and "feeling off" as well as intermittent ongoing diarrhea for the past several years he attributes to his antidiabetic meds. pt states he has not taken his supplemental potassium in several days since his prescription ran out. he denies chest pain, muscle cramps, fever, injury, shortness of breath, palpitations, or vomiting since last hospital stay. pt also states greater than 20lb unintentional weight loss in the past 4-5 weeks. - Related Data Allergies Allergy/AdvReac Type Severity Reaction Status Date / Time No Known Allergies Allergy Verified 03/27/20 09:50 Home Meds: Home Meds Aspirin [Ecotrin EC] 81 mg PO DAILY 02/03/20 [History] Gluc Panchal/Msm/Magnesium/Vit C [Glucosamine Complex-MSM] 1 cap PO BID 02/03/20 [ History] Krill Oil/Churdan-3/Dha/Epa [[facility] Churdan-3 Krill Oil 300 Sfgl] 1 cap PO DAILY [History] Multivitamin/Iron/Folic Acid [Centrum Adults Tablet] 1 tab PO DAILY 02/03/20 [ History] Pioglitazone HCl [Actos] 45 mg PO DAILY 02/03/20 [History] Sildenafil [Revatio] 20 mg PO DAILY PRN 02/03/20 [History] amLODIPine [Norvasc] 5 mg PO BEDTIME 02/03/20 [History] atorvaSTATin [Lipitor] 40 mg PO BEDTIME 02/03/20 [History] lisinopriL [Lisinopril] 40 mg PO BEDTIME 02/03/20 [History] metFORMIN [Glucophage] 1,000 mg PO BID 02/03/20 [History] Furosemide 20 mg PO DAILY 5 Days #5 tablet 03/27/20 [Rx] Magnesium Oxide [Magnesium Oxide 400] 240 mg PO BID 30 Days #60 tab 03/27/20 [Rx ] Past Medical History Cardiovascular History: Reports: High Cholesterol Respiratory History: Reports: None, Other (See Below) Other Respiratory History: smoker Other Neuro History: dizziness Endocrine/Metabolic History: Reports: Diabetes, Type II - Infectious Disease History Infectious Disease History: Reports: Mumps Other Infectious Disease History: Not sure but thinks so for Measles, mumps chicken pox - Past Surgical History Cardiovascular Surgical History: Reports: None Endocrine Surgical History: Reports: None Musculoskeletal Surgical History: Reports: Hip Replacement Social & Family History - Family History Family Medical History: Noncontributory - Tobacco Use Smoking Status *Q: Current Every Day Smoker Years of Tobacco use: 45 Packs/Tins Daily: 1 Tobacco Use Comment: greater than 45 pack year history - Caffeine Use Caffeine Use: Reports: Coffee - Recreational Drug Use Recreational Drug Use: No ED ROS GENERAL - Review of Systems Review Of Systems: Comprehensive ROS is negative, except as noted in HPI. ED EXAM, GENERAL - Physical Exam Exam: See Below Exam Limited By: No Limitations General Appearance: Alert, WD/WN, No Apparent Distress Eye Exam: Bilateral Eye: EOMI, PERRL Nose: Normal Inspection, Normal Mucosa Cardiovascular: Normal Peripheral Pulses, No Edema, No JVD, No Murmur, Tachycardia Peripheral Pulses: 2+: Radial (L), Radial (R), Dorsalis Pedis (L), Dorsalis Pedis (R) Extremities: Normal Inspection, Non-Tender Neurological: Alert, Oriented, CN II-XII Intact, Normal Cognition, Normal Gait, No Motor/Sensory Deficits Psychiatric: Normal Affect, Normal Mood Skin Exam: Warm, Dry, Intact EKG INTERPRETATION EKG Date: 03/27/20 Time: 10:14 Rhythm: Other (sinus tach) [place]: Normal P-Wave: Present QRS: Normal ST-T: Normal QT: Normal Comparison: Change From Previous EKG (t waves have normalized when compared to previous ecg of january 2020) Course - Vital Signs Last Recorded V/S: Last Vital Signs Temp 97.5 F 03/27/20 09:50 Pulse 105 H 03/27/20 11:28 Resp 18 03/27/20 11:28 BP 127/75 03/27/20 09:50 Pulse Ox 100 03/27/20 11:28 - Orders/Labs/Meds Orders: Active Orders 24 hr Category Date Time Status EKG Documentation Completion [RC] ASDIRECTED Care 03/27/20 10:27 Active Labs: Laboratory Tests 03/27/20 Range/Units 10:40 Potassium 5.6 H (3.5-5.1) mmol/L Magnesium 1.5 L (1.8-2.4) mg/dL K+ although elevated is not 6.6 as noted by this mornings lab draw. this mornings lab draw likely hemolyzed sample. - Re-Assessments/Exams Free Text/Narrative Re-Assessment/Exam: 03/27/20 1145 pt with slightly elevated K+ and low Mag. discussed results with pt who continues to be asymptomatic regarding hyperkalemia: no chest pain, palpitations , SOB,ECG abnormalities, lethargy. pt reveals PCP appointment tomorrow. Departure - Departure Time of Disposition: 11:45 Disposition: Home, Self-Care 01 Condition: Fair Clinical Impression: Hypomagnesemia, Hyperkalemia - Discharge Information *PRESCRIPTION DRUG MONITORING PROGRAM REVIEWED*: Not Applicable *COPY OF PRESCRIPTION DRUG MONITORING REPORT IN PATIENT ARAMIS: Not Applicable Prescriptions: Furosemide 20 mg PO DAILY 5 Days #5 tablet Magnesium Oxide [Magnesium Oxide 400] 240 mg PO BID 30 Days #60 tab Instructions: Hyperkalemia, [id number] Referrals: PCP,None [Primary Care Provider] - Forms: ED Department Discharge Care Plan Goals: take magnesium 400 mg one tab twice daily for treatment of low mag level. and furosemide 20 mg by mouth daily to help bring down elevated potassium. Follow up with Dr. Henley in clinic tomorrow. CT scan to rule out any possible cancer recommended. Sepsis Event Note (ED) - Evaluation Sepsis Screening Result: No Definite Risk - Focused Exam Vital Signs: Vital Signs Temp Pulse Resp BP Pulse Ox 03/27/20 11:28 105 H 18 100 03/27/20 09:50 97.5 F 108 H 18 127/75 100 - Problem List & Annotations (1) Hyperkalemia SNOMED Code(s): 52021521 Code(s): E87.5 - HYPERKALEMIA Status: Acute Current Visit: Yes (2) Hypomagnesemia SNOMED Code(s): 170571115 Code(s): E83.42 - HYPOMAGNESEMIA Status: Acute Current Visit: Yes - My Orders Last 24 Hours: My Active Orders 03/27/20 10:27 EKG Documentation Completion [RC] ASDIRECTED - Assessment/Plan Last 24 Hours: My Active Orders 03/27/20 10:27 EKG Documentation Completion [RC] ASDIRECTED Assessment:: coinciding hypomag with hyperkalemia. not usual for these to be opposite, unsure the cause whether this is renal vs oncologic especially in the setting of greater than 20lb weight loss in the last 4 weeks. recommend pt to notify his PCP tomorrow during his clinic visit whether more testing should be done in these respects. Plan: lasix 20mg qd for assistance in urinary excretion of potassium over the next several days magnesium oxide BID refill [id number] for mag replacement. follow up in PCP office tomorrow.
== END 2020-03-27 12:37 | disposition home or self-care (01) ==
LOC: LB.ED 09:46
DX: E87.5 Hyperkalemia (principal); E83.42 Hypomagnesemia; E11.9 Type 2 diabetes mellitus without complications; F17.210 Nicotine dependence, cigarettes, uncomplicated; Z79.82 Long term (current) use of aspirin; Z79.899 Other long term (current) drug therapy; Z79.84 Long term (current) use of oral hypoglycemic drugs
CPT/HCPCS: 36415; 83735; 84132; 93005; 99285-25